=== PATIENT | male | born 1965 | race Caucasian/White ===

== ENCOUNTER → 2024-12-29 | Outpatient (CLI) | payer BC, SELFPAY ==
[2024-12-29 07:53] LABS: Collection Type, Urine Clean Catch
[2024-12-29 08:38] LABS: Basophils # (Auto) 0.0 Thou/mm3 (0.0-0.2); Basophils % (Auto) 1 % (0-2.5); Eosinophils # (Auto) 0.1 Thou/mm3 (0.0-0.5); Eosinophils % (Auto) 1 % (0-10); Hematocrit 45.6 % (41.0-53.0); Hemoglobin 14.8 g/dL (13.5-16.0); Immature Granulocytes Auto 0.01 Thou/mm3 (0.00-0.00); Lymphocytes # (Auto) 2.2 Thou/mm3 (1.0-4.8); Lymphocytes % (Auto) 31 % (10-50); Mean Corpuscular HGB Conc 32.5 g/dl (31.0-37.0); Mean Corpuscular Hemoglobin 30.9 pg (25.0-35.0); Mean Corpuscular Volume 95 fL (80-100); Monocytes # (Auto) 0.6 Thou/mm3 (0.0-0.8); Monocytes % (Auto) 8 % (0-12); Neutrophils # (Auto) 4.0 Thou/mm3 (1.8-7.7); Neutrophils % (Auto) 58 % (37-80); Nucleated Red Blood Cell # 0.00 Thou/mm3 (0.00-0.00); Nucleated Red Blood Cell % 0 /100 WBC (0); Platelet Count 220 Thou/mm3 (140-440); RDW Standard Deviation 43.8 fL (35.1-43.9); Red Blood Count 4.79 Miln/mm3 (4.50-5.90); White Blood Count 6.9 Thou/mm3 (3.8-10.6)
[2024-12-29 08:42] LABS: Prostate Specific Antigen 0.73 ng/mL (0-4.00)
[2024-12-29 08:51] LABS: Bilirubin,Urine Negative (Negative); Blood,Urine Negative (Negative); Clarity,Urine Clear (Clear/Hazy); Color,Urine Yellow (Lt Yel-Yel); Glucose, Urine Negative (Negative); Ketones,Urine Negative (Negative); Leukocyte Esterase,Urine Negative (Negative); Nitrite,Urine Negative (Negative); PH,Urine 5.5 (5.0-7.0); Protein,Urine Trace (Neg - Trace); RBC,Urine 3 /hpf (0-3); Specific Gravity,Urine 1.028 (1.001-1.035); Squamous Epithelial Cell,Urine < 1 /hpf (0-5); Urobilinogen,Urine Negative mg/dL (0.0-1.0); WBC,Urine 1 /hpf (0-5)
[2024-12-29 08:53] LABS: Vitamin B12 642 pg/mL (211-911); Vitamin D 25 Hydroxy Total 23.7 ng/mL (7.3-40.2)
[2024-12-29 09:04] LABS: Alanine Aminotransferase 7 U/L (10-49); Albumin, Serum 4.2 gm/dL (3.4-4.8); Albumin/Globulin Ratio 1.8 (1.2-2.2); Alkaline Phosphatase 84 U/L (46-116); Anion Gap 10 (7-16); Aspartate Amino Transferase 13 U/L (0-34); BUN/Creatinine Ratio 10 Ratio (12-20); Bilirubin,Total 0.8 mg/dL (0.3-1.2); Blood Urea Nitrogen 10 mg/dL (9-23); Calcium 9.0 mg/dL (8.3-10.6); Calcium (Corrected) 9.0 mg/dL (8.5-10.1); Carbon Dioxide 26.3 mMol/L (20.0-31.0); Cardiac Risk Estimate 3.5 RATIO (4.0-6.7); Chloride 105 mMol/L (98-107); Cholesterol 215 mg/dL (132-200); Creatinine (Component) 1.0 mg/dL (0.6-1.3); Globulin 2.3 gm/dL (2.3-3.5); Glucose 97 mg/dL (74-106); Glucose Estimated Average 108 mg/dL (80-131); HDL Cholesterol 62 mg/dL (40-60); Hemoglobin A1C 5.4 % Hgb (4.8-6.0); LDL Cholesterol,Calculated 129 mg/dL (0-130); Osmolality,Calculated 280 (275-295); Potassium 4.3 mMol/L (3.4-5.1); Sodium 141 mMol/L (136-145); Thyroid Stimulating Hormone 2.97 uIU/mL (0.55-4.78); Total Protein 6.5 gm/dL (5.7-8.2); Triglycerides 119 mg/dL (30-150); Uric Acid 5.4 mg/dL (3.7-9.2); eGFR > 60 See Note
== END | disposition home or self-care (01) ==
LOC: COPL 06:38
PROVIDERS: PCP Internal Medicine; Referring Provider Internal Medicine; Visit Provider Internal Medicine
DX: Z00.00 Encounter for general adult medical examination without abnormal findings (principal)
CPT/HCPCS: 36415; 80053; 80061; 81001; 82306; 82607; 83036; 84153; 84443; 84550; 85025

== ENCOUNTER → 2025-01-08 | Outpatient (CLI) | payer BC, SELFPAY ==
--- NOTE | 2025-01-08 | XR_ITS ---
Examination:Right hip AP, lateral, AP pelvis 3 views Technique: Hip AP lateral, AP pelvis, 3 views Exam date and time:January 08, 2025 0738 hours INDICATIONS: Right hip pain radiating to the lower back beginning 6 months ago FINDINGS: Mild right moderate left hip osteoarthritis No right or left hip fracture or dislocation No avascular necrosis. Bones of the pelvis intact IMPRESSION: Mild right moderate left hip osteoarthritis.
== END | disposition home or self-care (01) ==
LOC: CDIM 06:49
PROVIDERS: PCP Internal Medicine; Referring Provider Internal Medicine; Visit Provider Internal Medicine
DX: M16.12 Unilateral primary osteoarthritis, left hip (principal)
CPT/HCPCS: 73502

== ENCOUNTER → 2025-02-25 | Outpatient (CLI) | payer BC, SELFPAY ==
--- NOTE | 2025-02-25 17:00 | XR_ITS ---
Examination: MRI right hip without intravenous contrast. Date and time of exam: February 25, 2025, 1706 hours INDICATIONS: Right hip pain beginning 3 months ago Technique: Multiple MRI images of the right hip have been obtained T1 weighted coronal sections, TR 500, TE 12 Proton density coronal fat saturated images, TR 3000, TE 71 T2-weighted coronal images, 5850, TE 104 T1-weighted axial images, TR 521, TE 12 T2-weighted axial fat suppressed images, TR 5730, TE 103. Findings: Mild to moderate narrowing right and left hip joints No right hip fracture or bone contusion or marrow edema or avascular necrosis Greater trochanteric bursitis right hip Small [id number] images do not demonstrate definite labral tear No free fluid in the pelvis Transverse prostate dimension 37 mm IMPRESSION: Mild to moderate narrowing right and left hip joints No right hip fracture or bone contusion or marrow edema or avascular necrosis Greater trochanteric bursitis right hip
== END | disposition home or self-care (01) ==
LOC: SMRI 16:37
PROVIDERS: PCP Internal Medicine; Referring Provider Internal Medicine; Visit Provider Internal Medicine
DX: M25.852 Other specified joint disorders, left hip (principal); M25.851 Other specified joint disorders, right hip; M70.61 Trochanteric bursitis, right hip
CPT/HCPCS: 73721

== ENCOUNTER 2025-03-24 12:44 | Outpatient (AMB) | payer BC, SELFPAY ==
[2025-03-24 13:17] VITALS: BP 135/81; PULSE 87; RESP 20; TEMP 37; O2SAT 94; BMI 33.5
--- NOTE | 2025-03-24 13:17 | ORTHONT_ITS ---
Vital signs 03/24/25 13:17 Height 1.78 m Height Method Stated Weight 105.885 kg Weight Measurement Method Standing Scale BMI 33.5 BP 135/81 H Blood Pressure Source Automatic Cuff Blood Pressure Location Left Upper Arm Position Sitting Respiration 20 Pulse 87 Pulse Source Monitor Temp 98.6 F Temp Source Temporal Artery Scan Pulse Oximetry (%) 94 L Oxygen Delivery Method Room Air Med/Allergies Allergies & Medications Allergies No Known Allergies Allergy (Verified 03/24/25 13:17) Medication Reconciliation ofloxacin 0.3 % eye drops See Rx Instructions ophthalmic (eye) .COMPLEX #5 mL 1 06/16/19 [Rx Confirmed 03/24/25] ibuprofen 800 mg tablet 800 mg PO TID PRN pain #30 tabs 10/01/20 [Rx Confirmed 03/24/25] naproxen 500 mg tablet 500 mg PO BID #60 tabs 03/24/25 [Rx] Exam Exam Patient is in no acute distress and is cooperative with the examination today. Breathing is nonlabored. In no respiratory distress. Patient has no paraspinal tenderness. Spinal deformity cannot be appreciated. The gait of the patient is nonantalgic Bilateral extremities were evaluated and demonstrates sensation intact to light touch. Palpable pedal pulses are present. No significant edema is present. Bilateral knees were examined and the patient has full strength and range of motion.. The left hip was examined. Patient was able to flex to 90 degrees, adduct to 30 degrees, abduct to 40 degrees, internally rotate to 20 degrees, and externally rotate to 20 degrees. Patient has a negative logroll. Stinchfield is negative. The patient is nontender diffusely to touch. The right hip was examined. Patient was able to flex to 90 degrees, adduct to 30 degrees, abduct to 40 degrees, internally rotate to 20 degrees, and externally rotate to 20 degrees. Patient has a negative logroll. The stinchfield is negative. He is tender to palpation over the greater trochanter Imaging - X-ray of the right hip: 01/09/2024, This demonstrates mild osteoarthritis of the right hip. There are acetabular osteophytes laterally. - MRI of the right hip: 02/25/2025, This demonstrates trochanteric bursitis as there is a fluid collection. Assessment and Plan Problem List (1) Trochanteric bursitis, right hip: Status: Acute Plan: ASSESSMENT AND PLAN 1. Trochanteric bursitis: Symptoms and MRI findings are consistent with trochanteric bursitis. The condition, involving the inflammation of the soft tissue sac around the hip due to a tight IT band, was explained. Treatment options discussed included cortisone injection, anti-inflammatories, and IT band stretches with physical therapy. The patient opted for the injection and anti-inflammatories. A cortisone injection will be administered today. A prescription for naproxen 500 mg twice daily for one to two weeks was provided. Physical therapy for IT band stretches was recommended but left to the patient's discretion. recommend hip bursa cortisone injection as patient would like to proceed with conservative treatment at this time. The risks and benefits of the procedure were reviewed with the patient and patient gave verbal consent to continue with the procedure. Procedure: performed by Dr. Rondon Using sterile technique the right hip bursa was thoroughly prepped with alcohol prep, and approximately 1 cc of solumedrol 80 mg and 4 cc of 0.25% ropivacaine was injected without resistance. The patient tolerated the procedure well. 2. Mild osteoarthritis of the right hip: X-rays from 01/09/2024 show mild osteoarthritis of the right hip with acetabular osteophytes laterally. The joint space is mild to moderate, and it was explained that a hip replacement is not necessary at this time. The patient was reassured that the condition is not severe enough to require surgical intervention. Office Procedures GNS Level of Care Nursing/Assessment Patient Status: Initial/New Patient Nursing Assessment/Reassesment: Medication Reconciliation, Update PMH in EMR and Vital Signs Coordination of Care: Complex Care and Chronic Disease 1-5, Education Complex Pt/Fam, Consent,records obtained, informed consent, 1 Ins Authorization, Lab and Imaging orders, Results/Orders obtained and Staff clarify orders New Patient Charge New Patient Point Assignment: 1124 New Patient Point Charge: HAND EDGER Level 4 ([id number]) Surgical Proc/IM SQ injection Minor Surgical Procedure: Yes (RIGHT HIP INJECTION) Medication Given Medication Given Medication Given: Yes Documented Dose Given: 1 Route: Infiitration Medication Given Medication Given Medication Given: Yes Documented Dose Given: 4 Route: Infiitration Office Meds methylprednisolone acetate 80 mg/mL suspension for injection Performing Provider: Osman Rondon MD Performing Location: [facility] Administered by: Osman Rondon MD on 03/24/25 13:33 Dose Route Admin Location Dispensed Lot Number Expiration Date Pack age [facility] [place] Gum Machine Filler 80 mg intra-articular 1 mL [id number] 12/17/26 [address]-4 [id number] [employer] ropivacaine (PF) 2 mg/mL (0.2 %) injection solution Performing Provider: Osman Rondon MD Performing Location: [facility] Administered by: Osman Rondon MD on 03/24/25 13:33 Dose Route Admin Location Dispensed Lot Number Expiration Date Pack age [facility] [place] Gum Machine Filler 20 mL Infiltration 20 mL [id number] 06/19/27 67312-449-87 [id number] [facility] Intake Visit Data Collection New Patient or Established: New Patient (never been to [facility]) Reason for Visit:: RIGHT HIP PAIN Seen by Clinical Staff ONLY (RN/MA): No PCP or OBGYN visit in last 3 months: Yes Hx Now: No Do You Feel Safe at Home: Yes Authorities Contacted: N/A Questionairres Past Medical History Past Medical History Have you ever been diagnosed with any of the following: Neurological Problems Seizures: No Head Trauma: Yes ( DUE TO FOOTBALL) Cardiology Problems Congestive Heart Failure: No Respiratory Problems Chronic Obstructive Pulmonary Disease (COPD): No Stomache/Intestinal Problems Diverticulitis: Yes Obesity: Yes Genital/Urinary Problems Renal Disease: No Kidney Stones: Yes (NO PROC) Musculoskeletal Problems Fractures: Yes (AYDE ANKLES HAD CAST NO SURG) Endocrine Problems Diabetes Mellitus Type 1: No Diabetes Mellitus Type 2: No Other Problems Blood Transfusions: No Blood Transfusion Reaction: No Anesthesia Reactions: No Chicken Pox: Yes Subjective Visit Visit for: new patient and hip (RIGHT) Immunization / Flu Flu Vaccine in the Last 12 Months: No Flu Vaccine Exclusion Criteria: No Exclusion Criteria History of Present Illness Chief complaint: RIGHT HIP PAIN Date of injury / onset of symptoms: APRIL 2024 HISTORY OF PRESENT ILLNESS IOsman, have obtained verbal consent from the patient, to be recorded during this encounter which may include, but not limited to, medical history, examination, treatment plans, and relevant health information.? Patient was informed that recording will be read and reviewed by myself before inclusion in the medical chart. The patient is a 59-year-old male who presents for evaluation of right hip pain. The pain started in 04/2024. He had an MRI done here. He reports not having any hip injections or physical therapy but did visit a chiropractor nine times, stating that his hip gets out of place. He takes Motrin or Neurontin as needed for pain. He was last seen on 01/09/2024, when X-rays showed mild osteoarthritis of the right hip with acetabular osteophytes laterally. An MRI performed on 02/25/2025 demonstrated trochanteric bursitis with a fluid collection. He reports experiencing some pain in his right hip, which he attributes to a long-standing back issue. In 04/2024, he sought medical attention from Dr. El due to back pain, who identified a hip dislocation. Since then, he has required nine adjustments to reposition his hip. He describes a sensation of instability in his hip when sleeping on his side or walking long distances, likening it to a mechanical feeling. Dr. El has informed him that his hip occasionally dislocates by approximately 1.25 to 1.5 inches, necessitating manual adjustment. He reports no current back pain but notes that strenuous activities such as yard work can exacerbate his symptoms. 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 He is unable to sleep on his affected side. In 11/2024, he experienced sciatic nerve impingement, which he initially suspected to be a tear. However, after seeking pet care associate, his symptoms resolved within a few days. He expresses interest in receiving an injection for his current condition and queries about the necessity of surgery. He has been contemplating a hip replacement for the past two months. His chiropractor has suggested that his hip dislocation may be exerting pressure on his lower lumbar area. 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 El. Pain Pain level (0-10): 3 Ambulatory data Ambulatory device: none Treatments Number of previous injections: 0 Improvement with previous injections: No Number of Physical Therapy sessions: 9 (chiropractor) Improvement with PT: Yes Improvement with NSAIDS: no Review of Systems Review of Systems: All systems negative unless otherwise noted in HPI.
== END 2025-03-24 13:37 | disposition home or self-care (01) ==
LOC: HODSRG 12:44
PROVIDERS: PCP Internal Medicine; Referring Provider Internal Medicine; Supervising Provider Orthopaedic Surgery Adult Reconstructive Orthopaedic Surgery; Visit Provider Orthopaedic Surgery Adult Reconstructive Orthopaedic Surgery
DX: M25.551 Pain in right hip (principal); M16.11 Unilateral primary osteoarthritis, right hip; E66.9 Obesity, unspecified; Z68.33 Body mass index [BMI] 33.0-33.9, adult
CPT/HCPCS: 20610; 99204; J1010; J2795; G0463